=== PATIENT | female | born 1960 | race Caucasian/White ===

== ENCOUNTER 2021-01-24 13:02 | Observation (INO) ==
[2021-01-24] MEDS ORDERED: SODIUM CHLORIDE 0.9% 500 ML IV STA (13:36)
[2021-01-24] MEDS ORDERED: SODIUM CHLORIDE 0.9% 1000ML 1,000 ML IV ONE (14:02)
[2021-01-24] MEDS ORDERED: ONDANSETRON INJ 2 MG/ML 2 ML VIAL IV STA (14:02)
[2021-01-24] MEDS ORDERED: KETOROLAC TROMETHAMINE 15 MG/ML VIAL IV STA (14:02)
[2021-01-24 14:28] LABS: Hematocrit (blood only) 41.9 % (37-47); Hemoglobin 13.9 g/dL (12.0-16.0); Mean Corpuscular Hemoglobin 30.2 pg (25-34); Mean Corpuscular Hgb Conc 33.2 g/dL (32-36); Mean Corpuscular Volume 90.9 fL (80-100); Platelet Count 286 K/uL (130-400); RDW Coefficient of Variation 13.2 % (11.5-14.5); Red Blood Count 4.61 M/uL (4.2-5.4); White Blood Count 9.25 K/uL (4.8-10.8)
[2021-01-24 14:28] LABS: POC Urine Bilirubin Negative (Negative); POC Urine Blood 250 (Negative); POC Urine Glucose Normal (Normal); POC Urine Ketones Negative (Negative); POC Urine Leukocytes 1+ (Negative); POC Urine Nitrite Negative (Negative); POC Urine Protein Trace (Negative); POC Urine Urobilinogen Normal (Normal)
[2021-01-24] MEDS ORDERED: MoRPHine SULFATE 2 MG/ML CARP IV STA (14:34)
[2021-01-24 14:50] LABS: Calcium 9.7 mg/dl (8.5-10.1); Creatinine Clr Calc Pharmacy 61.2 ml/min; Est GFR (African American) 101.8 ml/min; Est GFR (Non-African American) 87.9 ml/min
[2021-01-24] MEDS ORDERED: METOCLOPRAMIDE HCL INJ 5 MG/ML 2 ML VIAL IV ONE (14:54)
[2021-01-24] MEDS ORDERED: diphenhydrAMINE 50 MG/ML VIAL IV STA (14:54)
[2021-01-24 15:04] LABS: Appearance Urine Clear (Clear); Bacteria Urine Automated Negative (Negative); Bilirubin Urine Negative (Negative); Blood Urine 3+ (Negative); Color Urine Yellow; Epithelial Cell Urine Auto >30 /lpf (0-5); Glucose Urine UA Negative (Negative); Ketones Urine Trace (Negative); Leukocyte Esterase Urine 2+ (Negative); Nitrite Urine Negative (Negative); Protein Urine Negative (Negative); Urobilinogen Urine Negative (Negative)
[2021-01-24 15:15] LABS: Albumin Level 3.7 gm/dl (3.4-5.0); Bilirubin,Total 0.4 mg/dl (0.2-1); Total Protein 7.1 gm/dl (6.4-8.2)
--- NOTE | 2021-01-24 15:19 | CT Scan Report ---
ABDOMEN AND PELVIS CT WITHOUT CONTRAST CT DOSE: 262.91 mGy.cm HISTORY: Left flank pain. Nausea. Vomiting. TECHNIQUE: Multiaxial CT images of the abdomen and pelvis were performed without contrast. A dose lo wering technique was utilized adhering to the principles of ALARA. COMPARISON STUDY: None. FINDINGS: The lung bases are clear. No pneumoperitoneum. No pneumatosis. No fractures within the visu alized osseous structures. Small hiatus hernia. The bladder is decompressed and not well evaluated. T he uterus and bilateral adnexa are unremarkable. There is a 9 mm obstructing stone within the distal left ureter on image 308 resulting in mild left hydroureteronephrosis. No additional left renal calcu li. There is a punctate stone within the lower pole the right kidney. No right-sided hydronephrosis. The liver, spleen, adrenal glands, pancreas, and gallbladder are unremarkable. No retroperitoneal lym phadenopathy. Normal caliber abdominal aorta. Suboptimal evaluation for bowel pathology due to the la ck of intravenous and oral contrast. However, there is no definite bowel wall thickening or obstructi on. The visualized appendix is unremarkable. Moderate well-formed stool seen within the ascending col on and transverse colon. IMPRESSION: 1. A 5 mm obstructing stone at the distal left ureter resulting in mild left hydronephrosis. 2. Right-sided nephrolithiasis. 3. No definite bowel wall thickening or obstruction. ACT 112: Negative or not required by law. Electronically signed by: Stephen Whitaker M.D. 01/24/2021 3:18 PM
[2021-01-24 15:26] LABS: Bilirubin Direct 0.1 mg/dl (0-0.2)
[2021-01-24] MEDS ORDERED: SODIUM CHLORIDE 0.9% 1000ML 1,000 ML IV SCH (15:30)
--- NOTE | 2021-01-24 16:06 | Emergency Department Note ---
History of Present Illness General Chief Complaint: Kidney Stone Stated Complaint: KIDNEY STONES Time Seen by Provider: 01/24/21 13:51 History of Present Illness Provider Complaint: flank pain (L) Onset (ago): 1 day(s) Pain Consistency: constant Location: L flank Radiation: none Severity: severe Maximum Pain Intensity: 10 Current Pain Intensity: 9 Quality: + stabbing and + sharp Relieved By: + nothing Exacerbated By: + nothing Context: no foreign travel, no possible food poisoning, no sick contacts, no recent antibiotic use and no recent surgery/procedure Associated Symptoms: + nausea, + vomiting and + dysuria; no diarrhea, no fever, no chills, no constipation, no hematemesis, no hematochezia, no melena, no hematuria, no anorexia, no syncope, no headache, no chest pain, no weakness, no breathing difficulty and no numbness Related Data Patient Confirmed : No Home Medications Medication Instructions Recorded Confirmed Type No Known Home Medications 01/24/21 01/24/21 History Allergies Allergy/AdvReac Type Severity Reaction Status Date / Time Sulfa (Sulfonamide Allergy Unknown Verified 01/24/21 15:55 Antibiotics) Past Med/Surg History Medical History No pertinent family history No pertinent past medical history Surgical History No pertinent past surgical history Family History Other Breast cancer Heart disease Social History Smoking Status: Never smoker Preferred Language: Filipino Feels Safe at Home: Yes Review of Systems A total of 10 systems reviewed and were otherwise negative Physical Exam Vital Signs: Vital Signs - 24 hr 01/24/21 13:31 01/24/21 14:38 01/24/21 15:06 Temperature 36.8 C Temperature Source Temporal Artery Sc an Pulse Rate 62 88 Pulse Rate [Right Radial] 84 Pulse Rate from Sp O2 Sensor 87 Pulse Rhythm [Righ t Radial] Regular Respiratory Rate 18 22 17 Respiratory Effort / Characteristics Non-Labored Sponta neous Respiratory Depth Normal Normal Respiratory Patter n Regular Blood Pressure 141/88 H 140/109 H Blood Pressure [Le ft Arm] 130/71 Blood Pressure Amena n 105 119 Blood Pressure Amena n [Left Arm] 90 Blood Pressure Pos ition Sitting Blood Pressure Pos ition [Left Arm] Lying Pulse Oximetry 100 98 98 Oxygen Delivery Me thod Room Air Room Air Sepsis Recent Feve r Within 48 Hours No Sepsis New/Unexpla ined Change in Men rigo Status N/A Sepsis Action Take n by Nursing No Action Required 01/24/21 15:09 01/24/21 15:30 Temperature Temperature Source Pulse Rate 87 91 H Pulse Rate [Right Radial] Pulse Rate from Sp O2 Sensor 84 91 H Pulse Rhythm [Righ t Radial] Respiratory Rate 17 21 Respiratory Effort / Characteristics Respiratory Depth Respiratory Patter n Blood Pressure 130/76 Blood Pressure [Le ft Arm] Blood Pressure Amena n 94 Blood Pressure Amena n [Left Arm] Blood Pressure Pos ition Blood Pressure Pos ition [Left Arm] Pulse Oximetry 98 97 Oxygen Delivery Me thod Sepsis Recent Feve r Within 48 Hours Sepsis New/Unexpla ined Change in Men rigo Status Sepsis Action Take n by Nursing Physical Exam: Physical Exam GENERAL: She is oriented to person, place, and time. She appears well-developed and well-nourished. She does not appear distressed. HENT: Exam performed. -Head: Normocephalic and atraumatic. -Right Ear: External ear normal. No mastoid tenderness. -Left Ear: External ear normal. No mastoid tenderness. -Mouth/Throat: The oropharynx is clear and moist. No trismus in the jaw. No dental abscesses or uvula swelling. No oropharyngeal exudate or tonsillar abscesses. EYES: Conjunctivae and EOM are normal. Pupils are equal, round, and reactive to light. Right eye exhibits no discharge. Left eye exhibits no discharge. No scleral icterus. NECK: Normal range of motion. Neck supple. No JVD present. No spinous process tenderness present. No carotid bruit present. No rigidity. No tracheal deviation and normal range of motion present. No Brudzinski's sign and no Kernig's sign noted. CV: Normal rate, regular rhythm, normal heart sounds and intact distal pulses. There is no peripheral edema. Palpable radial pulses bue. PULM/CHEST: Effort normal and breath sounds normal. No respiratory distress. No stridor. She has no wheezes. She has no rales. -Chest Wall: She exhibits no tenderness. ABD: The abdomen is soft. Bowel sounds are normal. She has no distension. No mass is present. There is no tenderness. There is no rebound, no guarding, no Calvo's sign and no tenderness at McBurney's point. Rovsig negative left-sided CVA tenderness. MUSC/SKEL: Normal range of motion. There is no peripheral edema, tenderness or deformity. LYMPH: No cervical adenopathy. NEURO: She is alert and oriented to person, place, and time. She has normal strength. No cranial nerve deficit or sensory deficit. Coordination and gait normal. GCS eye subscore is 4. GCS verbal subscore is 5. GCS motor subscore is 6. Cerebellar tests wnl. SKIN: Skin is warm and dry. She is not diaphoretic. PSYCH: She has a normal mood and affect. Behavior is normal. Judgment and thought content normal. Course Course 1351: The patient was evaluated in room C1. A complete history and physical exam was performed Cardiac monitoring: An order was placed for continuous cardiac monitoring. The monitor shows a rate of 90 with sinus rhythm 1540: Vital signs stable. Labs within normal limits. Imaging shows 5 mm kidney stone with hydroureteronephrosis. Patient has required multiple doses of antiemetics and analgesics in the emergency department. Patient will be admitted to the hospital for pain and nausea control and evaluation by urology. Discussed the case with the [facility] hospitalist team who states to admit to Dr. Velasquez. Administered Medications Discontinued Medications Diphenhydramine HCl (Diphenhydramine 50 Mg/Ml Vial) 25 mg IV NOW STA Stop: 01/24/21 14:55 Last Admin: 01/24/21 15:02 Dose: 25 mg Documented by: [id number] Sodium Chloride (Nss) 500 mls @ 999 mls/hr IV .Q31M STA Stop: 01/24/21 14:06 Last Admin: 01/24/21 15:32 Dose: Not Given Documented by: [id number] Sodium Chloride (Nss 1000ml) 1,000 mls @ 999 mls/hr IV .Q1H1M ONE Stop: 01/24/21 15:02 Last Infusion: 01/24/21 15:32 Dose: 0 mls/hr Documented by: [id number] Admin: 01/24/21 14:10 Dose: 999 mls/hr Documented by: [id number] Ketorolac Tromethamine (Ketorolac Tromethamine 15 Mg/Ml Vial) 15 mg IV NOW STA Stop: 01/24/21 14:03 Last Admin: 01/24/21 14:06 Dose: 15 mg Documented by: [id number] Metoclopramide HCl (Metoclopramide Hcl Inj 5 Mg/Ml 2 Ml Vial) 5 mg IV ONE ONE Stop: 01/24/21 14:55 Last Admin: 01/24/21 15:02 Dose: 5 mg Documented by: [id number] Morphine Sulfate (Morphine Sulfate 2 Mg/Ml Carp) 2 mg IV NOW STA Stop: 01/24/21 14:35 Last Admin: 01/24/21 14:37 Dose: 2 mg Documented by: [id number] Ondansetron HCl (Ondansetron Inj 2 Mg/Ml 2 Ml Vial) 4 mg IV NOW STA Stop: 01/24/21 14:03 Last Admin: 01/24/21 14:06 Dose: 4 mg Documented by: [id number] Medical Decision Making Laboratory Data Result diagrams: 01/24/21 14:10 01/24/21 14:10 Lab Results 01/24/21 01/24/21 01/24/21 Range/Units 14:10 14:10 14:10 WBC 9.25 (4.8-10.8) K/uL RBC 4.61 (4.2-5.4) M/uL Hgb 13.9 (12.0-16.0) g/dL Hct 41.9 (37-47) % MCV 90.9 (80-100) fL MCH 30.2 (25-34) pg MCHC 33.2 (32-36) g/dL RDW Std Deviation 44.0 (36.4-46.3) fL RDW Coeff of Carlos 13.2 (11.5-14.5) % Plt Count 286 (130-400) K/uL MPV 10.0 (7.4-10.4) fL Sodium 140 (136-145) mmol/L Potassium 4.0 (3.5-5.1) mmol/L Chloride 106 (98-107) mmol/L Carbon Dioxide 27 (21-32) mmol/L Anion Gap 7.0 (3-11) BUN 14 (7-18) mg/dl Creatinine 0.75 (0.6-1.2) mg/dl Est Cr Clr Drug Dosing 61.2 ml/min Est GFR ( Amer) 101.8 ml/min Est GFR (Non-Af Amer) 87.9 ml/min BUN/Creatinine Ratio 19.0 (10-20) Glucose 112 H (70-99) mg/dl Lactate 2.1 H* (0.4-2.0) mmol/L Calcium 9.7 (8.5-10.1) mg/dl Total Bilirubin (0.2-1) mg/dl Direct Bilirubin (0-0.2) mg/dl AST (15-37) U/L ALT (12-78) U/L Alkaline Phosphatase (45-117) U/L Total Protein (6.4-8.2) gm/dl Albumin (3.4-5.0) gm/dl Lipase (73-393) U/L Urine Color Urine Appearance (Clear) Urine pH (4.5-7.5) POC Urine pH Ur Specific Ramona (1.000-1.030) Urine Protein (Negative) POC Urine Protein (Negative) Urine Glucose (UA) (Negative) POC Ur Glucose (UA) (Normal) Urine Ketones (Negative) POC Urine Ketones (Negative) Urine Blood (Negative) POC Urine Blood (Negative) Urine Nitrite (Negative) POC Urine Nitrite (Negative) Urine Bilirubin (Negative) POC Urine Bilirubin (Negative) Urine Urobilinogen (Negative) POC Urine Urobilinogen (Normal) Ur Leukocyte Esterase (Negative) POC U Leukocyte Esteras (Negative) Urine WBC (Auto) (0-5) /hpf Urine RBC (Auto) (0-4) /hpf U Hyaline Cast (Auto) (0-5) /lpf U Epithel Cells (Auto) (0-5) /lpf Urine Bacteria (Auto) (Negative) POC Ur Test (NEG) COVID-19 Eval Order 01/24/21 01/24/21 01/24/21 Range/Units 14:10 14:10 14:20 WBC (4.8-10.8) K/uL RBC (4.2-5.4) M/uL Hgb (12.0-16.0) g/dL Hct (37-47) % MCV (80-100) fL MCH (25-34) pg MCHC (32-36) g/dL RDW Std Deviation (36.4-46.3) fL RDW Coeff of Carlos (11.5-14.5) % Plt Count (130-400) K/uL MPV (7.4-10.4) fL Sodium (136-145) mmol/L Potassium (3.5-5.1) mmol/L Chloride (98-107) mmol/L Carbon Dioxide (21-32) mmol/L Anion Gap (3-11) BUN (7-18) mg/dl Creatinine (0.6-1.2) mg/dl Est Cr Clr Drug Dosing ml/min Est GFR ( Amer) ml/min Est GFR (Non-Af Amer) ml/min BUN/Creatinine Ratio (10-20) Glucose (70-99) mg/dl Lactate (0.4-2.0) mmol/L Calcium (8.5-10.1) mg/dl Total Bilirubin 0.4 (0.2-1) mg/dl Direct Bilirubin 0.1 (0-0.2) mg/dl AST 31 (15-37) U/L ALT 30 (12-78) U/L Alkaline Phosphatase 96 (45-117) U/L Total Protein 7.1 (6.4-8.2) gm/dl Albumin 3.7 (3.4-5.0) gm/dl Lipase 65 L (73-393) U/L Urine Color Urine Appearance (Clear) Urine pH (4.5-7.5) POC Urine pH Ur Specific Ramona (1.000-1.030) Urine Protein (Negative) POC Urine Protein (Negative) Urine Glucose (UA) (Negative) POC Ur Glucose (UA) (Normal) Urine Ketones (Negative) POC Urine Ketones (Negative) Urine Blood (Negative) POC Urine Blood (Negative) Urine Nitrite (Negative) POC Urine Nitrite (Negative) Urine Bilirubin (Negative) POC Urine Bilirubin (Negative) Urine Urobilinogen (Negative) POC Urine Urobilinogen (Normal) Ur Leukocyte Esterase (Negative) POC U Leukocyte Esteras (Negative) Urine WBC (Auto) (0-5) /hpf Urine RBC (Auto) (0-4) /hpf U Hyaline Cast (Auto) (0-5) /lpf U Epithel Cells (Auto) (0-5) /lpf Urine Bacteria (Auto) (Negative) POC Ur Test NEG (NEG) COVID-19 Eval Order 01/24/21 01/24/21 01/24/21 Range/Units 14:20 14:20 15:43 WBC (4.8-10.8) K/uL RBC (4.2-5.4) M/uL Hgb (12.0-16.0) g/dL Hct (37-47) % MCV (80-100) fL MCH (25-34) pg MCHC (32-36) g/dL RDW Std Deviation (36.4-46.3) fL RDW Coeff of Carlos (11.5-14.5) % Plt Count (130-400) K/uL MPV (7.4-10.4) fL Sodium (136-145) mmol/L Potassium (3.5-5.1) mmol/L Chloride (98-107) mmol/L Carbon Dioxide (21-32) mmol/L Anion Gap (3-11) BUN (7-18) mg/dl Creatinine (0.6-1.2) mg/dl Est Cr Clr Drug Dosing ml/min Est GFR ( Amer) ml/min Est GFR (Non-Af Amer) ml/min BUN/Creatinine Ratio (10-20) Glucose (70-99) mg/dl Lactate (0.4-2.0) mmol/L Calcium (8.5-10.1) mg/dl Total Bilirubin (0.2-1) mg/dl Direct Bilirubin (0-0.2) mg/dl AST (15-37) U/L ALT (12-78) U/L Alkaline Phosphatase (45-117) U/L Total Protein (6.4-8.2) gm/dl Albumin (3.4-5.0) gm/dl Lipase (73-393) U/L Urine Color Yellow Urine Appearance Clear (Clear) Urine pH 5.0 (4.5-7.5) POC Urine pH Not Reportable Ur Specific Ramona 1.020 (1.000-1.030) Urine Protein Negative (Negative) POC Urine Protein Trace H (Negative) Urine Glucose (UA) Negative (Negative) POC Ur Glucose (UA) Normal (Normal) Urine Ketones Trace H (Negative) POC Urine Ketones Negative (Negative) Urine Blood 3+ H (Negative) POC Urine Blood 250 H (Negative) Urine Nitrite Negative (Negative) POC Urine Nitrite Negative (Negative) Urine Bilirubin Negative (Negative) POC Urine Bilirubin Negative (Negative) Urine Urobilinogen Negative (Negative) POC Urine Urobilinogen Normal (Normal) Ur Leukocyte Esterase 2+ H (Negative) POC U Leukocyte Esteras 1+ H (Negative) Urine WBC (Auto) 10-30 H (0-5) /hpf Urine RBC (Auto) 10-30 H (0-4) /hpf U Hyaline Cast (Auto) 1-5 (0-5) /lpf U Epithel Cells (Auto) >30 H (0-5) /lpf Urine Bacteria (Auto) Negative (Negative) POC Ur Test (NEG) COVID-19 Eval Order Covid19 at [facility] Imaging Data Radiologist's Impression: Abdomen/Pelvis CT 01/24/21 14:[address] WITHOUT CONTRAST CT DOSE: 262.91 mGy.cm HISTORY: Left flank pain. Nausea. Vomiting. TECHNIQUE: Multiaxial CT images of the abdomen and pelvis were performed without contrast. A dose lowering technique was utilized adhering to the principles of ALARA. COMPARISON STUDY: None. FINDINGS: The lung bases are clear. No pneumoperitoneum. No pneumatosis. No fractures within the visualized osseous structures. Small hiatus hernia. The bladder is decompressed and not well evaluated. The uterus and bilateral adnexa are unremarkable. There is a 9 mm obstructing stone within the distal left ur eter on image 308 resulting in mild left hydroureteronephrosis. No additional left renal calculi. There is a punctate stone within the lower pole the right kidney. No right-sided hydronephrosis. The liver, spleen, adrenal glands, pancreas, and gallbladder are unremarkable. No retroperitoneal lymphadenopathy. Normal caliber abdominal aorta. Suboptimal evaluation for bowel pathology due to the lack of intravenous and oral contrast. However, there is no definite bowel wall thickening or obstruction. The visualized appendix is unremarkable. Moderate well-formed stool seen within the ascending colon and transverse colon. IMPRESSION: 1. A 5 mm obstructing stone at the distal left ureter resulting in mild left hydronephrosis. 2. Right-sided nephrolithiasis. 3. No definite bowel wall thickening or obstruction. ACT 112: Negative or not required by law. Electronically signed by: Stephen Whitaker M.D. 01/24/2021 3:18 PM [facility] Narrative Vital signs stable. Labs within normal limits. Imaging shows 5 mm kidney stone with hydroureteronephrosis. Patient has required multiple doses of antiemetics and analgesics in the emergency department. Patient will be admitted to the hospital for pain and nausea control and evaluation by urology. Discussed the case with the [facility] hospitalist team who states to admit to Dr. Velasquez. Impression & Plan Hydronephrosis with renal and ureteral calculous obstruction Discharge Plan Visit Data Chief Complaint: Kidney Stone Stated Complaint: KIDNEY STONES ED Provider: Neil Perry Discharge Problem: Hydronephrosis with renal and ureteral calculous obstruction Patient Disposition: Being Evaluated by Hospitalist Forms Stand Alone Forms: [facility] Field Dailies Prescriptions Prescriptions: No Action No Known Home Medications RF: 0 Referrals Referrals: Krunal Malloy MD [Primary Care Provider] -
--- NOTE | 2021-01-24 16:38 | History & Physical Report ---
Date of Service January 24, 2021 Assessment & Plan (1) Hydronephrosis with renal and ureteral calculous obstruction: (2) Lactic acidosis: 5 mm obstructing stone at the distal left ureter resulting in mild left hydronephrosis. Renal function normal. She does not meet criteria for SIRS/SEPSIS. Hemodynamically stable and now pain free. She does have elevated lactate at 2.1. admit to med/surg continue IVF 150cc/hr Empiric IV rocephin 2g q24h - will repeat Urine, first sample contaminated, pt educated on clean catch specimen flomax 0.4mg HS urine strainer IV toradol 15mg q6h prn moderate pain/IV morphine 4mg q4h severe pain gluten free diet until 00:00 and then NPO consult Urology - discussed and they are aware - requested to be notified if pt develops fever, chills, uncontrolled pain or SIRS Dispo:med/surg PCP: Luke FULL CODE Pt was seen and examined in collaboration with Dr. Velasquez, please see addendum History of Present Illness Chief Complaint: L sided flank pain x 1 day. Primary Care Provider: Dr. Butler This is a 60-year-old female who has significant past medical history of frequent UTIs who presents to ED secondary to left-sided flank pain x1 day. She states left-sided flank pain came on abruptly, nonradiating, described as sharp, never experienced in the past, made better with movement, nothing made worse and she did not try anything at home to relieve symptoms. It was associated with nausea and 3 episodes of vomiting. She does complain of increased urinary urgency but denies any laurie hematuria, increased urinary frequency or dysuria. She does have history of frequent UTIs and therefore she knows, "what this feels like. "She denies similar symptoms to UTI. She denies any fever, chills, sweats, lightheadedness, dizziness, syncope, chest pain, short breath, cough, URI symptoms, abdominal pain, diarrhea, melena or hematochezia. She denies any family history of kidney stones. She is otherwise healthy and does not take any prescription medications. Her only prior surgeries or a breast biopsy and colonoscopy. She denies smoking or alcohol use. In ED she remained hemodynamically stable and was afebrile. She did have a mild lactic acidosis of 2.1 but otherwise afebrile, good blood pressure and WBC 9.25. Her renal function was normal with a creatinine 1.75. Her initial urinalysis showed l eukocytes but also appeared contaminated. Allergies Allergy/AdvReac Type Severity Reaction Status Date / Time Sulfa (Sulfonamide Allergy Unknown Unknown Verified 01/24/21 17:40 Antibiotics) Home Medications Medication Instructions Recorded Confirmed Type cranberry extract 200 mg PO BID 01/24/21 01/24/21 History Past Med/Surg History Medical History History of recurrent UTI (urinary tract infection) Surgical History History of breast biopsy History of colonoscopy Family History Father Heart disease Aunt Breast cancer Mother Alzheimer disease Social History Smoking Status: Never smoker Hx Alcohol Use: Yes Alcohol type: wine Hx Substance Use: No Preferred Language: Persian Communication Ability: Effective Drug Safety Assistant Required: No Beliefs That Will Affect Care: None marital status: Current Living Situation: Spouse Other Information That Helps Us Care for You: No Feels Safe at Home: Yes Safety Concerns: Feels Safe At This Time Assistive Devices: Glasses Review of Systems Review of Systems: All systems reviewed & are unremarkable except as noted in HPI & below Physical Exam Physical Exam: Constitutional: WD/WN, vitals as above, NAD, sitting up in bed, pleasant, conversing easily Head: Normocephalic, Atraumatic Eyes: PERRL, conjunctivae normal, anicteric sclerae ENMT: external ear and nose normal, oropharynx normal Neck: trachea midline, no thyromegaly normal visual inspection Respiratory: normal respiratory effort, lungs clear to auscultation, no wheeze, rales, rhonchi. Normal insp/exp effort, no accessory muscle use Cardiovascular: RRR, no murmur, no edema Vessels: no JVD or carotid bruit Chest: normal inspection of chest Abdomen: normal bowel sounds, soft, nontender, no hepatosplenomegaly, no flank pain Musculoskeletal: no cyanosis or clubbing, extremities motor strength 5/5 Skin: no rashes, warm and dry normal turgor Neurologic: PERRL, EOMI, accommodation nl, no face palsy, no dysarthria CN's II-XI intact bilaterally and moves all extremities Psychiatric: A+Ox3, euthymic affect Lymphatic: no cervical or axillary lymphadenopathy : deferred Results & Data Results & Data ([facility]) Vital Signs (Past 12 Hours) Vital Signs Temp Pulse Pulse Resp BP BP Pulse Ox 01/24/21 15:30 91 H 21 130/76 97 01/24/21 15:09 87 17 98 01/24/21 15:06 88 17 140/109 H 98 01/24/21 14:38 84 22 130/71 98 01/24/21 13:31 36.8 C 62 18 141/88 H 100 Diagnostic Findings Abdomen/Pelvis CT 01/24/21 14:[address] WITHOUT CONTRAST CT DOSE: 262.91 mGy.cm HISTORY: Left flank pain. Nausea. Vomiting. TECHNIQUE: Multiaxial CT images of the abdomen and pelvis were performed without contrast. A dose lowering technique was utilized adhering to the principles of ALARA. COMPARISON STUDY: None. FINDINGS: The lung bases are clear. No pneumoperitoneum. No pneumatosis. No fractures within the visualized osseous structures. Small hiatus hernia. The bladder is decompressed and not well evaluated. The uterus and bilateral adnexa are unremarkable. There is a 9 mm obstructing stone within the distal left ureter on image 308 resulting in mild left hydroureteronephrosis. No additional left renal calculi. There is a punctate stone within the lower pole the right kidney. No right-sided hydronephrosis. The liver, spleen, adrenal glands, pancreas, and gallbladder are unremarkable. No retroperitoneal lymphadenopathy. Normal caliber abdominal aorta. Suboptimal evaluation for bowel pathology due to the lack of intravenous and oral contrast. However, there is no definite bowel wall thickening or obstruction. The visualized appendix is unremarkable. Moderate well-formed stool seen within the ascending colon and transverse colon. IMPRESSION: 1. A 5 mm obstructing stone at the distal left ureter resulting in mild left hydronephrosis. 2. Right-sided nephrolithiasis. 3. No definite bowel wall thickening or obstruction. ACT 112: Negative or not required by law. Electronically signed by: Stephen Whitaker M.D. 01/24/2021 3:18 PM Medications Administered Medication List Discontinued Medications Diphenhydramine HCl (Diphenhydramine 50 Mg/Ml Vial) 25 mg IV NOW STA Stop: 01/24/21 14:55 Last Admin: 01/24/21 15:02 Dose: 25 mg Documented by: [id number] Sodium Chloride (Nss) 500 mls @ 999 mls/hr IV .Q31M STA Stop: 01/24/21 14:06 Last Admin: 01/24/21 15:32 Dose: Not Given Documented by: [id number] Sodium Chloride (Nss 1000ml) 1,000 mls @ 999 mls/hr IV .Q1H1M ONE Stop: 01/24/21 15:02 Last Infusion: 01/24/21 15:32 Dose: 0 mls/hr Documented by: [id number] Admin: 01/24/21 14:10 Dose: 999 mls/hr Documented by: [id number] Ketorolac Tromethamine (Ketorolac Tromethamine 15 Mg/Ml Vial) 15 mg IV NOW STA Stop: 01/24/21 14:03 Last Admin: 01/24/21 14:06 Dose: 15 mg Documented by: [id number] Metoclopramide HCl (Metoclopramide Hcl Inj 5 Mg/Ml 2 Ml Vial) 5 mg IV ONE ONE Stop: 01/24/21 14:55 Last Admin: 01/24/21 15:02 Dose: 5 mg Documented by: [id number] Morphine Sulfate (Morphine Sulfate 2 Mg/Ml Carp) 2 mg IV NOW STA Stop: 01/24/21 14:35 Last Admin: 01/24/21 14:37 Dose: 2 mg Documented by: [id number] Ondansetron HCl (Ondansetron Inj 2 Mg/Ml 2 Ml Vial) 4 mg IV NOW STA Stop: 01/24/21 14:03 Last Admin: 01/24/21 14:06 Dose: 4 mg Documented by: [id number] COVID-19 Results Results COVID-19 Adm Lab Results: RBC 4.61 M/uL (4.2-5.4) 01/24/21 WBC 9.25 K/uL (4.8-10.8) 01/24/21 Hgb 13.9 g/dL (12.0-16.0) 01/24/21 Hct 41.9 % (37-47) 01/24/21 Plt Count 286 K/uL (130-400) 01/24/21 Na 140 mmol/L (136-145) 01/24/21 K 4.0 mmol/L (3.5-5.1) 01/24/21 Cl 106 mmol/L (98-107) 01/24/21 CO2 27 mmol/L (21-32) 01/24/21 Anion Gap 7.0 (3-11) 01/24/21 BUN 14 mg/dl (7-18) 01/24/21 Creatinine 0.75 mg/dl (0.6-1.2) 01/24/21 BUN/Creatinine Ratio 19.0 (10-20) 01/24/21 Glucose Level 112 mg/dl (70-99) H 01/24/21 Ca 9.7 mg/dl (8.5-10.1) 01/24/21 Total Bilirubin 0.4 mg/dl (0.2-1) 01/24/21 Direct Bilirubin 0.1 mg/dl (0-0.2) 01/24/21 AST/SGOT 31 U/L (15-37) 01/24/21 ALT/SGPT 30 U/L (12-78) 01/24/21 Alkaline Phosphatase 96 U/L (45-117) 01/24/21 Total Protein 7.1 gm/dl (6.4-8.2) 01/24/21 Albumin 3.7 gm/dl (3.4-5.0) 01/24/21 COVID-19 PCR NEGATIVE (Negative) 01/24/21 Code Status & VTE Plan Code Status Full code VTE Prophylaxis Plan VTE Prophylaxis will be ordered: Yes Reason for no VTE drug order: Treatment not indicated Supervising Physician Co-Signing Physician Notes Attending addendum: The patient was seen and examined being medical floor She has been complaining of some pain of the left groin and left renal angle No nausea no vomiting, no fever and no chills She has been feeling a little bit better since admission On examination No apparent distress at rest Hemodynamically stable Chestclear to auscultate bilaterally HeartS1-S2 regular no murmur Abdomenbenign, tender in rib renal angle, bowel sounds present Extremitiesnegative CNSalert, awake and oriented x3. No focal sensory or motor deficit appreciated Her admission labs and imaging studies reviewed Has 3 mm obstructing left distal ureteric stone with associated hydronephrosis Urology has been consulted Agree with assessment and plan as outlined above by EBONY Davison DR.
[2021-01-24 16:41] LABS: Appearance Urine Clear (Clear); Bacteria Urine Automated Negative (Negative); Bilirubin Urine Negative (Negative); Blood Urine 3+ (Negative); Color Urine Yellow; Epithelial Cell Urine Auto >30 /lpf (0-5); Glucose Urine UA Negative (Negative); Ketones Urine 1+ (Negative); Leukocyte Esterase Urine 1+ (Negative); Nitrite Urine Negative (Negative); Protein Urine Negative (Negative); Specific Gravity Urine 1.016 (1.000-1.030); Urobilinogen Urine Negative (Negative)
[2021-01-24] MEDS ORDERED: KETOROLAC TROMETHAMINE 15 MG/ML VIAL IV PRN (17:38)
[2021-01-24] MEDS ORDERED: MoRPHine SULFATE 4 MG/ML 1 ML CARP\\VIAL IV PRN (17:38)
[2021-01-24] MEDS ORDERED: cefTRIAXone SODIUM 2,000 MG in DEXTROSE 5% 50 ML IV SCH ×2 (18:00)
[2021-01-24] MEDS: SODIUM CHLORIDE 0.9% 1000ML 1,000 ML IV SCH (18:00)
--- NOTE | 2021-01-24 20:03 | Urology Consultation ---
Date of Consultation January 24, 2021 Assessment & Plan (1) Hydronephrosis with renal and ureteral calculous obstruction: Patient has been admitted to the hospital by the hospitalist service. We recommend proceeding as follows: Provide analgesics Provide antiemetics Provide Flomax for expulsive therapy Hydration with IV fluids Patient has been initiated on antibiotics in the form of Rocephin. Urine culture has been sent and is pending. Her antibiotics can be tailored based on culture results Repeat KUB in the morning I discussed with the patient that since she is a 5 mm stone there is probably a 50/50 chance that she will pass the stone on her own. We will therefore make her n.p.o. after midnight and will reassess her in the morning to determine if cystoscopy is needed. If it is determined that she does not require any procedure such as cystoscopy we will allow her diet to be advanced. At the present time the patient does not exhibiting signs or symptoms of sepsis. He is noted to be normotensive without tachycardia. She has not had a leukocytosis or acute kidney injury. Lactic acid has improved since admission. Therefore I not feel urgent cystoscopy is required at this time. Further recommendation will made based on patient's clinical course as it unfolds. History of Present Illness Reason for Consultation: Nephrolithiasis Attending Physician: Petty Velasquez MD History of Present Illness Is a 60-year-old female who was in her usual state of health when earlier this morning she developed some left-sided flank pain. She said that the pain is primarily located in left flank and back and does not radiate to her abdomen. She denies any fevers, shakes, chills. She has had associated nausea vomiting. The pain became quite severe she presented to the emergency department for further evaluation. There is no over the mention that the patient denies having any other issues with kidney stones in the past. Since admission the patient has had labs and imaging which I independently reviewed.A CT scan of her abdomen pelvis demonstrated a 5 mm obstructing stone in the distal left ureter. This resulted in mild left hydronephrosis. She was also noted to have some right-sided nephrolithiasis. Labs included a CBC where her white blood cell count, hemoglobin, hematocrit, and platelet count are all within normal range. Immature profile showed her sodium, potassium, BUN, and creatinine were all within normal range. A Covid test was performed and was noted to be negative. Lactic acid level was checked and was noted to be 1.5. This level was noted to be decreased from her initial value of 2.1. A urinalysis was performed and was negative for nitrite. She was noted to have 1+ leukocyte Estrace as well as 5-10 white blood cells per high-power field. Urine test was noted to be negative. Patient notes that when she is feeling well she is in excellent physical condition walking least 10,000 steps per day. She says with her daily activities she does not get chest pain or shortness of breath. At the time of my interview the patient was resting comfortably in bed and her pain was well controlled and she was in no distress. Allergies Allergy/AdvReac Type Severity Reaction Status Date / Time Sulfa (Sulfonamide Allergy Unknown Unknown Verified 01/24/21 17:40 Antibiotics) Home Medications Medication Instructions Recorded Confirmed Type cranberry extract 200 mg PO BID 01/24/21 01/24/21 History Patient History Medical History History of recurrent UTI (urinary tract infection) Surgical History History of breast biopsy History of colonoscopy Family History Father Heart disease Aunt Breast cancer Mother Alzheimer disease Social History Smoking Status: Never smoker Hx Alcohol Use: Yes Alcohol type: wine Hx Substance Use: No Preferred Language: Comoran Communication Ability: Effective Surface Hydrologist Required: No Beliefs That Will Affect Care: None marital status: Current Living Situation: Spouse Other Information That Helps Us Care for You: No Feels Safe at Home: Yes Safety Concerns: Feels Safe At This Time Assistive Devices: Glasses Review of Systems Constitutional: no fever and no chills Eyes: no diplopia Ear, Nose, Mouth, Throat: no ear pain Respiratory: no cough and no dyspnea Cardiovascular: no chest pain Gastrointestinal: + nausea and + vomiting; no abdominal pain Genitourinary: + flank pain (Left-sided); no dysuria Musculoskeletal: + back pain (Left-sided flank pain) Integumentary: no rash Neurologic: no generalized weakness Physical Exam Constitutional: well developed and well nourished; no acute distress Eyes: no conjunctival abnormality Wears glasses ENMT: Ears: no hearing impairment Neck: trachea midline Respiratory: normal respiratory effort, lungs clear to auscultation Cardiovascular: Rate/Rhythm: regular rate and regular rhythm Gastrointestinal (Abdomen): Abdomen is soft and nondistended. There is no pain with palpation. Musculoskeletal: No calf tenderness Skin: no rashes, warm and dry Neurologic: moves all extremities Psychiatric: A+Ox3, euthymic affect Genitourinary: + CVA tenderness (Left-sided tenderness noted with percussion) Results & Data ([facility]) Vital Signs (Past 12 Hours) Vital Signs Temp Pulse Pulse Pulse Resp BP BP 01/24/21 17:30 36.3 C L 77 16 105/67 01/24/21 17:00 85 16 01/24/21 16:30 83 17 01/24/21 16:00 84 22 123/72 01/24/21 15:30 91 H 21 130/76 01/24/21 15:09 87 17 01/24/21 15:06 88 17 140/109 H 01/24/21 14:38 84 22 130/71 01/24/21 13:31 36.8 C 62 18 141/88 H Pulse Ox 01/24/21 17:30 97 01/24/21 17:00 01/24/21 16:30 01/24/21 16:00 98 01/24/21 15:30 97 01/24/21 15:09 98 01/24/21 15:06 98 01/24/21 14:38 98 01/24/21 13:31 100 PG Care Time/CCT Total # of Minutes Spent Total Time Spent with Patient: Total time spent is greater than 50% in coordination of care (as documented) at patient's floor/unit and/or counseling patient: Coding Level of Care Code 69926 Inpt Consult Level 5 Diagnoses Hydronephrosis with renal and ureteral calculous obstruction N13.2
[2021-01-24] MEDS ORDERED: ONDANSETRON INJ 2 MG/ML 2 ML VIAL IV PRN (20:04)
[2021-01-24] MEDS ORDERED: TAMSULOSIN HCL 0.4 MG CAP PO SCH (21:00)
[2021-01-25] MEDS: SODIUM CHLORIDE 0.9% 1000ML 1,000 ML IV SCH ×2 (01:16→09:10)
[2021-01-25 06:47] LABS: Basophils # (auto) 0.03 K/uL (0-0.2); Basophils % (auto) 0.5 %; Eosinophils # (auto) 0.05 K/uL (0-0.5); Eosinophils % (auto) 0.9 %; Hematocrit (blood only) 32.3 % (37-47); Hemoglobin 10.3 g/dL (12.0-16.0); Immature Granulocytes # (auto) 0.01 K/uL (0.00-0.02); Immature Granulocytes % (auto) 0.2 %; Lymphocytes % (auto) 38.8 %; Mean Corpuscular Hemoglobin 29.4 pg (25-34); Mean Corpuscular Hgb Conc 31.9 g/dL (32-36); Mean Corpuscular Volume 92.3 fL (80-100); Mean Platelet Volume 9.9 fL (7.4-10.4); Monocytes # (auto) 0.51 K/uL (0.11-0.59); Neutrophils # (auto) 2.87 K/uL (1.4-6.5); Neutrophils % (auto) 50.6 %; Platelet Count 194 K/uL (130-400); RDW Coefficient of Variation 13.5 % (11.5-14.5); RDW Standard Deviation 45.8 fL (36.4-46.3); White Blood Count 5.67 K/uL (4.8-10.8)
[2021-01-25 07:25] LABS: BUN Creatinine Ratio 13.8 (10-20); Calcium 7.8 mg/dl (8.5-10.1); Creatinine Clr Calc Pharmacy 60.7 ml/min; Est GFR (African American) 97.1 ml/min; Est GFR (Non-African American) 83.8 ml/min; Potassium 3.9 mmol/L (3.5-5.1)
--- NOTE | 2021-01-25 08:27 | Urology Progress Note ---
Date of Service January 25, 2021 Assessment & Plan (1) Calculus of distal left ureter: (2) Left flank pain: 60 year-old female patient admitted with intractable left flank pain secondary to obstructing 5mm left distal ureteral calculus. -Patient remains afebrile. -Labs reviewed - white count and creatinine stable. -Urine culture pending, on empiric Ceftriaxone. -Continue to strain urine. -Discussed options with patient including trial of passage, outpatient ESWL if candidate, or inpatient surgical intervention including ureteral stent with possible stone treatment. -She would like to pursue surgical intervention. -Keep NPO. Findings reviewed with Dr. Rowland. Given her left flank pain in the context of an obstructing 5 mm left distal ureteral calculus, will proceed with OR for cystoscopy, left retrograde pyelogram and left stent placement, possible ureteroscopy, laser lithotripsy, stone basketing, depending on findings. Risks and benefits of procedure discussed and to be reviewed with patient by Dr. Rowland. OR notified. Preoperative CXR and EKG ordered. COVID negative. Will be covered with scheduled IV Ceftriaxone preoperatively. Admission and Anticipated Discharge Date Admission Date: January 24, 2021 Subjective Patient examined at bedside, alert and awake. She is comfortable and non-toxic in appearance. Reports pain has improved since admission, currently not experiencing left flank pain. No longer having any nausea or vomiting. Denies fevers or chills. Denies dysuria or hematuria. Denies urinary urgency, but notes frequency. Feels she empties her bladder well. No known prior history of stones, does have history of recurrent UTIs. No known stone passage since admission, urine is being strained. Has been NPO since midnight. Chart review: Wbc 5.67 Hgb 10.3 Creatinine 0.78 Lactate elevated on admission at 2.1, repeat normal at 1.5. Urine culture pending. Patient on scheduled Ceftriaxone. Denies additional urologic concerns today. Review of Systems Constitutional: as per Subjective / HPI; no fever and no chills Respiratory: no cough and no dyspnea Cardiovascular: no chest pain and no edema Gastrointestinal: as per Subjective / HPI; no nausea and no vomiting Genitourinary: as per Subjective / HPI Physical Exam Constitutional: well developed and well nourished; no acute distress and not ill appearing Respiratory: normal respiratory effort and able to speak in complete sentences; no respiratory distress and no audible wheezes Gastrointestinal (Abdomen): Inspection/Auscultation: abdomen normal to inspection; abdomen not distended Percussion/Palpation: abdomen soft; abdomen nontender and no guarding Psychiatric: Orientation: alert, oriented x 3 and cooperative Affect: euthymic affect Genitourinary: no CVA tenderness Results & Data ([facility]) Vital Signs (Past 12 Hours) Vital Signs Temp Pulse Resp BP Pulse Ox 01/25/21 08:10 65 107/67 01/25/21 07:13 37.2 C 73 18 87/59 L 97 01/24/21 23:01 37.4 C 70 16 98/58 L 94 PG Care Time/CCT Total # of Minutes Spent Total Time Spent with Patient: Total time spent is greater than 50% in coordination of care (as documented) at patient's floor/unit and/or counseling patient: Coding Level of Care Code 90631 Subseq Hosp Care Lvl 2 Diagnoses Calculus of distal left ureter N20.1 Left flank pain R10.9
--- NOTE | 2021-01-25 08:37 | XRay Report ---
XR chest 2V PA/lateral, XR KUB/Abdomen 1 view HISTORY: 60 years-old Female preop renal calculi COMPARISON: CT abdomen and pelvis 01/24/2021 TECHNIQUE: PA and lateral views of the chest with KUB radiograph FINDINGS: CHEST: Cardiomediastinal and hilar silhouettes are within normal limits. Mild interstitial coarsening is lik stefan chronic. Lungs are mildly hyperinflated. No pneumothorax, pleural effusion, airspace consolidatio n or overt pulmonary edema. The bones of the chest appear grossly intact. KUB: Moderate fecal retention. No pneumatosis or pneumoperitoneum. Bowel gas pattern is nonobstructive. Th e known right nephrolithiasis is not identified. The previously described 5 mm calculus of the distal left ureter is also not identified. IMPRESSION: 1. No acute processes of the chest. 2. Moderate fecal retention with nonobstructive bowel gas pattern. 3. The previously noted right nephrolithiasis and distal left ureteral calculus are not identified, p ossibly obscured by bowel gas. ACT 112: Negative or not required by law. The above report was generated using voice recognition software. It may contain grammatical, syntax o r spelling errors. Electronically signed by: Jas French M.D. 01/25/2021 8:36 AM
--- NOTE | 2021-01-25 12:20 | Hospitalist Progress Note ---
Date of Service January 25, 2021 Assessment & Plan (1) Hydronephrosis with renal and ureteral calculous obstruction: 5 mm obstructing stone at the distal left ureter resulting in mild left hydronephrosis. Renal function normal. She does not meet criteria for SIRS/SEPSIS. Hemodynamically stable and now pain free. She does have elevated lactate at 2.1. Appreciate urology input and recommendation She has had KUB done this morning which was unremarkable She passed the stone this morning and was advised discharge by the urology service She will be going home this afternoon She was advised to drink more fluid UA was suggestive of infection She was a started with intravenous ceftriaxone Urine culture is pending We will continue with orals Keflex for a total of 5 days (2) Lactic acidosis: Slightly increasing lactate level is noted on admission at 2.1 Doubt any significance of this and doubt any sepsis The repeat level came at 1.5 Dispo:med/surg PCP: Luke FULL CODE Will be discharged home this afternoon Admission and Anticipated Discharge Date Admission Date: January 24, 2021 Subjective 01/25/2021 The patient was seen and examined in medical floor She has not been complaining of any more pain in the left loin and/or left groin area Denies any fever and/or chills She has passed the stone this morning Review of Systems Review of Systems: All systems reviewed and are unremarkable except as noted below Gastrointestinal: no abdominal pain, no nausea and no vomiting Physical Exam Physical Exam: Lying in bed comfortably Constitutional: average body habitus; not ill appearing Eyes: PERRL, conjunctivae normal, anicteric sclerae ENMT: external ear and nose normal, oropharynx normal Neck: trachea midline, no thyromegaly Respiratory: normal respiratory effort, lungs clear to auscultation Cardiovascular: Rate/Rhythm: regular rate and regular rhythm Heart Sounds: no murmur Extremities: no edema Gastrointestinal (Abdomen): Inspection/Auscultation: normal bowel sounds; abdomen not distended Percussion/Palpation: abdomen soft; abdomen nontender Musculoskeletal: No acute arthritis in any joint Neurologic: Alert, awake and oriented x3. No focal sensory and motor deficit appreciated Lymphatic: no cervical or axillary lymphadenopathy Results & Data Results & Data ([facility]) Vital Signs (Past 12 Hours) Vital Signs Temp Pulse Resp BP Pulse Ox 01/25/21 08:10 65 107/67 01/25/21 07:13 37.2 C 73 18 87/59 L 97 Laboratory Results Short CBC 01/24/21 01/25/21 Range/Units 14:10 06:11 WBC 9.25 5.67 (4.8-10.8) K/uL Hgb 13.9 10.3 L D (12.0-16.0) g/dL Hct 41.9 32.3 L (37-47) % Plt Count 286 194 (130-400) K/uL BMP 01/24/21 01/25/21 14:10 06:11 Sodium 140 145 Potassium 4.0 3.9 Chloride 106 116 H Carbon Dioxide 27 25 BUN 14 11 Creatinine 0.75 0.78 Glucose 112 H 79 Calcium 9.7 7.8 L D Liver Function 01/24/21 Range/Units 14:10 Total Bilirubin 0.4 (0.2-1) mg/dl Direct Bilirubin 0.1 (0-0.2) mg/dl AST 31 (15-37) U/L ALT 30 (12-78) U/L Alkaline Phosphatase 96 (45-117) U/L Albumin 3.7 (3.4-5.0) gm/dl Urine 01/24/21 01/24/21 Range/Units 14:20 16:25 Urine Color Yellow Yellow Urine Appearance Clear Clear (Clear) Urine pH 5.0 6.0 (4.5-7.5) Ur Specific [place] 1.020 1.016 (1.000-1.030) Urine Protein Negative Negative (Negative) Urine Glucose (UA) Negative Negative (Negative) Medications Administered Current Inpatient Medications Sodium Chloride (Nss 1000ml) 1,000 mls @ 150 mls/hr IV .Q6H40M [place] Stop: 02/23/21 17:37 Last Admin: 01/25/21 09:10 Dose: 150 mls/hr Documented by: Ceftriaxone Sodium 2,000 mg/ (Dextrose) 70 mls @ 100 mls/hr IV Q24H [facility]; Protocol Stop: 01/29/21 17:59 Last Infusion: 01/24/21 20:17 Dose: Infused Documented by: Ketorolac Tromethamine (Ketorolac Tromethamine 15 Mg/Ml Vial) 15 mg IV Q6H PRN PRN Reason: moderate pain Morphine Sulfate (Morphine Sulfate 4 Mg/Ml 1 Ml Carp\Vial) 4 mg IV Q4H PRN PRN Reason: severe pain Stop: 02/07/21 17:37 Ondansetron HCl (Ondansetron Inj 2 Mg/Ml 2 Ml Vial) 4 mg IV Q6H PRN PRN Reason: Nausea And Vomiting Stop: 02/23/21 20:03 Tamsulosin HCl (Tamsulosin Hcl 0.4 Mg Cap) 0.4 mg PO HS [facility] Stop: 02/23/21 20:59 Last Admin: 01/24/21 20:23 Dose: 0.4 mg Documented by:
--- NOTE | 2021-01-26 08:38 | Discharge Summary ---
Date of Service January 26, 2021 Admission HPI Per Admitting Provider This is a 60-year-old female who has significant past medical history of frequent UTIs who presents to ED secondary to left-sided flank pain x1 day. She states left-sided flank pain came on abruptly, nonradiating, described as sharp, never experienced in the past, made better with movement, nothing made worse and she did not try anything at home to relieve symptoms. It was associated with nausea and 3 episodes of vomiting. She does complain of increased urinary urgency but denies any laurie hematuria, increased urinary frequency or dysuria. She does have history of frequent UTIs and therefore she knows, "what this feels like. "She denies similar symptoms to UTI. She denies any fever, chills, sweats, lightheadedness, dizziness, syncope, chest pain, short breath, cough, URI symptoms, abdominal pain, diarrhea, melena or hematochezia. She denies any family history of kidney stones. She is otherwise healthy and does not take any prescription medications. Her only prior surgeries or a breast biopsy and colonoscopy. She denies smoking or alcohol use. In ED she remained hemodynamically stable and was afebrile. She did have a mild lactic acidosis of 2.1 but otherwise afebrile, good blood pressure and WBC 9.25. Her renal function was normal with a creatinine 1.75. Her initial urinalysis showed leukocytes but also appeared contaminated. Admission Exam Per Admitting Provider Physical Exam: Constitutional: WD/WN, vitals as above, NAD, sitting up in bed, pleasant, conversing easily Head: Normocephalic, Atraumatic Eyes: PERRL, conjunctivae normal, anicteric sclerae ENMT: external ear and nose normal, oropharynx normal Neck: trachea midline, no thyromegaly normal visual inspection Respiratory: normal respiratory effort, lungs clear to auscultation, no wheeze, rales, rhonchi. Normal insp/exp effort, no accessory muscle use Cardiovascular: RRR, no murmur, no edema Vessels: no JVD or carotid bruit Chest: normal inspection of chest Abdomen: normal bowel sounds, soft, nontender, no hepatosplenomegaly, no flank pain Musculoskeletal: no cyanosis or clubbing, extremities motor strength 5/5 Skin: no rashes, warm and dry normal turgor Neurologic: PERRL, EOMI, accommodation nl, no face palsy, no dysarthria CN's II-XI intact bilaterally and moves all extremities Psychiatric: A+Ox3, euthymic affect Lymphatic: no cervical or axillary lymphadenopathy : deferred Principal Diagnosis Hydronephrosis with renal and left ureteral calculus, passed the stone this morning, possible UTI Discharge Exam Constitutional average body habitus; not ill appearing Eyes PERRL, conjunctivae normal, anicteric sclerae ENMT external ear and nose normal, oropharynx normal Neck trachea midline, no thyromegaly Respiratory normal respiratory effort, lungs clear to auscultation Cardiovascular Rate/Rhythm: regular rate and regular rhythm Heart Sounds: no murmur Extremities: no edema Gastrointestinal (Abdomen) Inspection/Auscultation: normal bowel sounds; abdomen not distended Percussion/Palpation: abdomen soft; abdomen nontender Lymphatic no cervical or axillary lymphadenopathy Discharge Data Allergies Allergy/AdvReac Type Severity Reaction Status Date / Time Sulfa (Sulfonamide Allergy Unknown Unknown Verified 01/24/21 17:40 Antibiotics) Consultations 01/24/21 15:33 ED Decision to Admit Stat 01/24/21 16:00 Consult Urology Routine Procedures Performed Operation Date: 01/25/21 12:35 <No data on this case meets the specified criteria> Ordered Studies 01/24/21 14:03 CT abd pelvis wo con Stat Hospital Course (1) Hydronephrosis with renal and ureteral calculous obstruction: 5 mm obstructing stone at the distal left ureter resulting in mild left hydronephrosis. Renal function normal. She does not meet criteria for SIRS/SEPSIS. Hemodynamically stable and now pain free. She does have elevated lactate at 2.1. Appreciate urology input and recommendation She has had KUB done this morning which was unremarkable She passed the stone this morning and was advised discharge by the urology service She will be going home this afternoon She was advised to drink more fluid UA was suggestive of infection She was a started with intravenous ceftriaxone Urine culture is pending We will continue with orals Keflex for a total of 5 days (2) Lactic acidosis: Slightly increasing lactate level is noted on admission at 2.1 Doubt any significance of this and doubt any sepsis The repeat level came at 1.5 Dispo:med/surg PCP: Luke FULL CODE Will be discharged home this afternoon Home Health Attestation I certify that this patient is under my care and that I, or a physicians surgical services assistant working with me, had a face to-face encounter that meets the home health [id number] encounter requirements with this patient. The encounter with the patient was in whole, or in part, for the following medical condition, which is the primary reason for home health care (list medical condition): I certify that, based on my findings, the following services are medically necessary home health services: My clinical findings support the need for the above services because: Further, I certify that my clinical findings support that this patient is homebound (i.e. absences from home require considerable and taxing effort and are for medical reasons or yazdanism services or infrequently or of short duration when for other reasons) because: Certification for Home Health Services: Based on the above findings, I certify that this patient is confined to the home and needs intermittent [facility] care, physical therapy and/or speech therapy or continues to need occupational therapy. The patient is under my care, and I have initiated the establishment of the plan of care. This patient will be followed by a physician who will periodically review the plan of care. Total Time Total Time Spent Total Time Spent (In Minutes): 35 minutes Total Time Includes: Examination of the Patient, Discharge Planning, Medication Reconciliation and Communication With Other Providers Discharge Plan Discharge Items Patient Disposition: Home - Self-Care Reason For Visit: KIDNEY STONE, HYDRONEPHROSIS,LACTIC ACIDOSIS Discharge Diagnosis: Hydronephrosis with renal and left ureteral calculus, passed the stone this morning, possible UTI Condition on Discharge: Good Activity: Resume your previous activity Non-emergency contact: Primary Care Provider Call non-emergency contact if: you have any medication questions and your symptoms worsen Follow-up/Referrals: Naty Butler DO [Primary Care Provider] - (Date & Time 01/29/2021 11:20 AM Provider Naty Butler DO Department [facility] ) Diet: Regular Addtl Attending Provider Instructions: Please finish the course of antibiotic Drink plenty of fluid Please keep appointment with your primary care provider Pending Studies at Discharge: Yes Stand-Alone Forms: [employer], Smoking Cessation Medications and DC Order Prescriptions: New tamsulosin 0.4 mg Capsule 0.4 mg PO HS 30 Days Qty: 30 RF: 0 cephalexin 250 mg capsule 250 mg PO Q6H 3 Days Qty: 12 RF: 0 Continued cranberry extract 200 mg Capsule 200 mg PO BID RF: 0 Discharge Orders: Discharge Order (Routine); Ordered 01/25/21 Ordered By: Petty Velasquez Admission Data Admit Date/Time: 01/24/21 16:00 Attending Provider: Petty Velasquez Admit Provider: Petty Velasquez Primary Care Provider: Naty Butler Other Providers: Sanchez Hughes ; Petty Velasquez Other Interventions: Discharge Summary Assessment (RN) Last Done: 01/25/21 13:38
--- NOTE | 2021-01-27 07:15 | Electrocardiogram Report ---
Test Reason : Blood Pressure : / mmHG Vent. Rate : 062 BPM Atrial Rate : 062 BPM P-R Int : 184 ms QRS Dur : 070 ms QT Int : 406 ms P-R-T Axes : 079 044 067 degrees QTc Int : 412 ms Normal sinus rhythm Cannot rule out Anterior infarct , age undetermined Abnormal ECG No previous ECGs available Confirmed by Ovidio Cline ([id number]) on 01/27/2021 7:14:57 AM Referred By: REFERRED SELF Confirmed By:Ovidio Cline
[2021-01-29 14:46] LABS: Component 2 DNR; Source URETERAL STONE
== END 2021-01-25 14:34 | disposition home or self-care (01) ==
LOC: ED 13:02 → 3N 16:00 → INTOOBSV 16:00 → 3N 18:00